=== PATIENT | male | born 1960 | race Caucasian/White ===

== ENCOUNTER 2024-01-10 04:47 | Emergency (ER) | payer MEDICARE, SELFPAY ==
[2024-01-10] VITALS (13 sets, daily range): BP systolic 58–149; BP diastolic 25–109; PULSE 66–183; RESP 12–42; TEMP 34.7–36; O2SAT 94
--- NOTE | 2024-01-10 04:30 | RT.EKG_ITS ---
APPROVED REPORT Exam: Resting ECG Reason for Exam: STEMI Patient Location: E HR:137 bpm ECG Measurements Heart Rate 137 AXIS CA 92 P 266 QRSd 87 QRS 130 QT 301 T 70 QTc 456 Conclusion Sinus tachycardia with irregular rate...V-rate 100-179, variation>10% Inferoposterior infarct, acute...ST>.1 inf, <-.1 V1-3 or >.05 V7-9 Lateral infarct, acute...ST >.10mV, V5 V6 I aVL Physician: stemi (inferior, lateral, and potential posterior) and potential afib/flutter
--- NOTE | 2024-01-10 04:45 | DI.RAD_ITS ---
Exam(s) XR PORTABLE CHEST AP POST LINE EXAM: XR PORTABLE CHEST AP POST LINE CLINICAL HISTORY: post intubation. TECHNIQUE: 2D digital imaging was performed. COMPARISON: No exams were available for comparison FINDINGS: Single AP portable view. Distal tip of the endotracheal tube is above the lily at the clavicular level. NG tube in place bu t requires further advancement into the stomach.. Chest leads and cardiac pad in place. Heart size is upper normal. The mediastinum is not widened. Lungs are clear. No infiltrates nor obvious pleural effusions. IMPRESSION: No acute pulmonary findings on this single AP portable view of the chest. Intubated. The NG tube needs to be advanced further into the stomach. DATA REPOSITORY: RADIATION DOSE DELIVERED:
[2024-01-10] MEDS: Rocuronium 50 MG/5 ML SYR 100 MG IVP (04:59)
[2024-01-10] MEDS: Etomidate 20 MG/10 ML VIAL IVP (04:59)
[2024-01-10] MEDS: Tenecteplase 50 MG KIT IVP (05:04)
[2024-01-10] MEDS: Phenylephrine 800 MCG/10 ML SYR 160 MCG IVP (05:10)
--- NOTE | 2024-01-10 05:15 | DI.CT_ITS ---
Exam(s) CT THORAX CTA EXAM: CT THORAX CTA CLINICAL HISTORY: stemi. TECHNIQUE: Imaging Protocol: CT angiography of the chest was performed using pulmonary embolus sharda col. Multi planar reconstructions were performed. CONTRAST MATERIAL: Intravenous: Omnipaque 350 Contrast volume: 100 cc COMPARISON: No exams were available for comparison FINDINGS: CHEST: Patient is intubated. Distal tip of the endotracheal tube is above the lily. There is also an NG tube in place. Distal tip is in the proximal stomach and should be further advanced. PULMONARY ARTERIES: There are no central intraluminal filling defects to suggest acute central pulmon jae emboli.Suboptimal opacification post segmental pulmonary arteries but no obvious pulmonary emboli . LUNGS: There are no infiltrates nor evidence of pulmonary infarction.. There are no pleural effusions . MEDIASTINUM: No mediastinal hematoma. No hilar nor mediastinal adenopathy. Visualized thyroid unrem arkable. CARDIAC: Heart size normal but there is a significant pericardial effusion which exhibits thickness o f 11 mm and which exhibits density units consistent with blood/hemopericardium.Thoracic aorta appears unremarkable with normal size and no evidence of dissection. However, there is significant contrast reflux into the liver; into the intrahepatic IVC and systemic veins of the dependent aspect of the r ight hepatic lobe and dependent right hepatic lobe parenchyma is also opacified. Interventricular se ptum is bowed towards the left-side. PARTIALLY VISUALIZED UPPERMOST ABDOMEN: Gallbladder wall edema noted without radiopaque gallstones no r gallbladder wall distension. OSSEOUS: No fractures. No significant osseous lesions.. IMPRESSION: 1. There is a moderate size pericardial effusion. Density of the fluid is consistent with hemoperica rdium..There is no evidence of aortic dissection nor significant dilatation of the thoracic aorta. 2. No obvious acute pulmonary emboli but there is paradoxical bowing of the interventricular septum o f the heart and a significant amount of the injected intravenous contrast is located in the intrahepa tic IVC and right and middle intrahepatic systemic veins as well as opacifying the dependent right he patic lobe parenchyma. This finding is consistent with significant cardiac dysfunction. 3. There is gallbladder wall edema noted. No obvious gallbladder calculi nor gallbladder distension. Suspect that this may be related to congestion from cardiac dysfunction but cannot completely rule out simultaneous cholecystitis. 4. No pulmonary infiltrates nor pleural effusions. No evidence of pulmonary infarction. First read by [facility]. RADIATION DOSE DELIVERED: 774.83mGy.cm Total DLP DATA REPOSITORY: All CT scans at this facility are submitted to the National Radiology Data Registry (NRDR) Dose Index Registry (DIR) with the [employer] ([employer]). RADIATION OPTIMIZATION: All CT scans at this facility use at least one of these dose optimization te chniques: automated exposure control; mA and/or kV adjustment per patient size (includes targeted exa ms where dose is matched to clinical indication); or iterative reconstruction.
--- NOTE | 2024-01-10 05:15 | DI.CT_ITS ---
Exam(s) CT HEAD WO EXAM: CT HEAD WO CLINICAL HISTORY: altered. TECHNIQUE: Imaging Protocol: Axial computed tomography images with coronal and sagittal reformatted images were created and reviewed COMPARISON: No exams were available for comparison FINDINGS: There is air in the forehead scalp tissues which appears to be within a vessel. There is also gas wi thin the cavernous sinuses bilaterally.. There is no radiopaque foreign body. There are also gas bu bbles within the left orbit retro conal compartment within vessels. There are no skull fractures. Th ere is no fluid in the visualized paranasal sinuses. There is no evidence of intracranial hemorrhage, mass effect, or shift of midline structures. There are no extra-axial fluid collections. The ventricles are not enlarged or shifted and there is no blo od within the ventricular system nor within the basal cisterns. IMPRESSION: There is multifocal intra vascular gas. This may be related to procedures such as iatrogenic injecti on or self injection. No evidence of intracranial hemorrhage nor obvious infarct. RADIATION DOSE DELIVERED: 719.29mGy.cm Total DLP DATA REPOSITORY: All CT scans at this facility are submitted to the National Radiology Data Registry (NRDR) Dose Index Registry (DIR) with the [employer] ([employer]). RADIATION OPTIMIZATION: All CT scans at this facility use at least one of these dose optimization te chniques: automated exposure control; mA and/or kV adjustment per patient size (includes targeted exa ms where dose is matched to clinical indication); or iterative reconstruction.
[2024-01-10 05:19] LABS: Lactate 11.7 mmol/L (0.6-1.4)
[2024-01-10 05:20] LABS: Abs Immature Grans 0.35 10^3/uL (0.0-0.06); Absolute Eosinophil Count 0.07 10^3/uL (0.0-0.7); Absolute Lymphocyte Count 1.67 10^3/uL (1.2-3.4); Absolute Neutrophil Count 13.77 10^3/uL (1.2-6.7); Basophils % 0.5; Eosinophils % 0.4; HCT 44.7 % (40.0-50.0); HGB 14.3 g/dL (13.5-17.5); Lymphocytes % 9.7; MCH 29.4 pg (27.0-33.0); MCV 92 fL (80-95); MPV 11.8 fL (8.0-11.0); Monocytes % 7.2; Neutrophils % 80.2; Platelet Count 269 10^3/uL (130-400); RBC 4.86 10^6/uL (4.36-5.78); RDW 12.5 % (11.8-14.1); RDW-SD 42.3 fL; WBC 17.17 10^3/uL (4.4-10.8)
[2024-01-10 05:22] LABS: Absolute Basophil Count 0.09 10^3/uL (0.0-0.2); Absolute Monocyte Count 1.24 10^3/uL (0.1-0.8)
[2024-01-10 05:31] LABS: INR 1.2 (0.9-1.1); PTT Activated 27.6 sec (23.6-32.8); Prothrombin Time 12.1 sec (9.1-11.1)
[2024-01-10] MEDS: Aspirin 300 MG SUPP PR (05:45)
[2024-01-10 05:47] LABS: ALT 55 U/L (16-63); AST 166 U/L (15-37); Albumin 2.8 g/dL (3.4-5.0); Alkaline Phosphatase 85 U/L (46-116); Anion Gap 22.1 mmol/L (3-11); BUN 12 mg/dL (7-18); CO2 13.9 mmol/L (21.0-32.0); CREATININE 2.4 mg/dL (0.70-1.30); Calcium 8.4 mg/dL (8.5-10.1); Chloride 96 mmol/L (98-107); Estimated GFR 29.21 (mL/min/1.73m2); Glucose 428 mg/dL (74-106); NT-proBNP 8335 pg/mL (<300); Potassium 3.6 mmol/L (3.5-5.1); Sodium 132 mmol/L (136-145); TSH (W/Ref FT4) 5.57 uIU/mL (0.36-3.74); Total Protein 6.2 g/dL (6.4-8.2)
[2024-01-10] MEDS: Omnipaque 350 MG/ML 100 ML BTL IJ (05:49)
[2024-01-10 05:50] LABS: Troponin I 19736 ng/L (< or =60)
[2024-01-10] MEDS: Normal Saline - Diluent 50 ML VIAL IJ (05:50)
--- NOTE | 2024-01-10 05:56 | DI.VRAD_ITS ---
PROCEDURE INFORMATION: Exam: XR Chest Exam date and time: 01/10/2024 5:12 AM Age: 63 years old Clinical indication: Device placement; Other: Intubation, og TECHNIQUE: Imaging protocol: Radiologic exam of the chest. Views: 1 view. COMPARISON: No relevant prior studies available. FINDINGS: Tubes, catheters and devices: NG tube tip is approximately at the gastric cardia, barely distal to the GE junction. ET tube tip is approximately 6.4 cm superior to the lily. Lungs: Unremarkable. No consolidation. Pleural spaces: Unremarkable. No pleural effusion. No pneumothorax. Heart/Mediastinum: Unremarkable. No cardiomegaly. Bones/joints: Unremarkable. IMPRESSION: NG tube tip is approximately at the gastric cardia, barely distal to the GE junction. Dictated and Authenticated by: Ilan Stein MD. Ordering:MEERA Quinn MD
--- NOTE | 2024-01-10 06:00 | DI.VRAD_ITS ---
PROCEDURE INFORMATION: Exam: CT Head Without Contrast Exam date and time: 01/10/2024 5:32 AM Age: 63 years old Clinical indication: Other: Stemi TECHNIQUE: Imaging protocol: Computed tomography of the head without contrast. Radiation optimization: All CT scans at this facility use at least one of these dose optimization techniques: automated exposure control; mA and/or kV adjustment per patient size (includes targeted exams where dose is matched to clinical indication); or iterative reconstruction. COMPARISON: No relevant prior studies available. FINDINGS: Brain: No brain edema. No intracranial hemorrhage. Cerebral ventricles: No ventriculomegaly. Paranasal sinuses: Visualized sinuses are unremarkable. No fluid levels. Mastoid air cells: Unremarkable. Bones/joints: Unremarkable. No acute fracture. Soft tissues: Unremarkable. Vasculature: Incidental multifocal intravenous gas. IMPRESSION: No acute brain findings. Dictated and Authenticated by: Ilan Stein MD. Ordering:MEERA Quinn MD
[2024-01-10 06:06] LABS: FREE T4 1.04 ng/dL (0.76-1.46)
--- NOTE | 2024-01-10 06:12 | DI.VRAD_ITS ---
PROCEDURE INFORMATION: Exam: CTA Chest With Contrast Exam date and time: 01/10/2024 5:34 AM Age: 63 years old Clinical indication: Other: Stemi TECHNIQUE: Imaging protocol: Computed tomographic angiography of the chest with contrast. Exam focused on the arteries. 3D rendering (Not supervised by radiologist): MIP and/or 3D reconstructed images were created by the technologist. Radiation optimization: All CT scans at this facility use at least one of these dose optimization techniques: automated exposure control; mA and/or kV adjustment per patient size (includes targeted exams where dose is matched to clinical indication); or iterative reconstruction. Contrast material: OMNIPAQUE 350; Contrast volume: 100 ml; Contrast route: INTRAVENOUS (IV); COMPARISON: CR XR PORTABLE CHEST AP 01/10/2024 5:12 AM FINDINGS: Tubes, catheters and devices: ET tube in place. NG tube tip is in the lumen of the proximal to mid stomach. Pulmonary arteries: Normal. No pulmonary emboli. Aorta: No acute aortic syndrome or aneurysm. Lungs: No CT findings of cardiogenic or noncardiogenic pulmonary edema. Lungs are clear. Pleural spaces: No pneumothorax or pleural effusion. Heart: There is moderate volume homogeneously hyperdense pericardial fluid compatible with hemopericardium. Heart size is normal but there is paradoxical bowing of the interventricular septum of the heart without right ventricular dilatation and the much of the right upper extremity intravenous contrast bolus passes right through the right atrium into the IVC (where much of it is pole dependently), the middle and right hepatic veins, and the dependent right lobe hepatic parenchyma. These findings correlate with the clinically determined approximately 20% ejection fraction/cardiac dysfunction due to massive acute FL. Esophagus: Unremarkable. Lymph nodes: Unremarkable. No enlarged lymph nodes. Gallbladder and bile ducts: Gallbladder is relatively contracted. Stranding/fluid adjacent to the gallbladder is probably related to hepatic congestion due to cardiac dysfunction rather than cholecystitis. Bones/joints: Unremarkable. No acute fracture. Soft tissues: Unremarkable. IMPRESSION: 1. There is moderate volume homogeneously hyperdense pericardial fluid compatible with hemopericardium. 2. Heart size is normal but there is paradoxical bowing of the interventricular septum of the heart without right ventricular dilatation and the much of the right upper extremity intravenous contrast bolus passes right through the right atrium into the IVC (where much of it is pole dependently), the middle and right hepatic veins, and the dependent right lobe hepatic parenchyma. These findings correlate with the clinically determined approximately 20% ejection fraction/cardiac dysfunction due to massive acute FL. 3. Gallbladder is relatively contracted. Stranding/fluid adjacent to the gallbladder is probably related to hepatic congestion due to cardiac dysfunction rather than cholecystitis. Findings discussed with ROSALVA DAIGLE MD at time of interpretation. Dictated and Authenticated by: Ilan Stein MD. Ordering:MEERA Quinn MD
--- NOTE | 2024-01-10 07:40 | ED.GENADUL_ITS ---
Discharge Plan Disposition Patient Disposition: Transfer-Acute Inpatient Care Specific Acute Inpt Facility: [facility] Condition: Critical Discharge Details Chief Complaint: Chest Pain Clinical Impression: ST elevation MD (STEMI), SVT (supraventricular tachycardia), Shock Primary Care Provider: None,None ED Provider: Kai Daigle General Date/Time Provider Initiated Documentation: 01/10/24 05:11 . HPI Narrative: 63-year-old male with no significant past medical history who is a retired assistant associate full professor, with no history of tobacco use or alcohol use, who takes no medications presents today for evaluation of STEMI. History comes from EMS and family. Family states that for the last 24 hours the patient was complaining of right foot pain, as well as some nausea. No other complaints whatsoever. Patient did exercise a few days ago which was within normal limits. No other atypical behaviors. No complaints of chest pain. This evening at around 3 AM the patient's noted that his extremities were cold, he was sweaty and clammy, and so she called EMS for further assessment. Upon EMS arrival the patient was noted to have a STEMI on EKG, rapid heart rate in the 170s to 180s, and to be quite confused and altered. He was brought to the ER for further assessment. Patient lived 45 minutes to an hour away from here and so transport time was prolonged secondary to this. EMS did give [address] of [address]rolol on the way. No other medications. Patient upon arrival is relatively nonresponsive to questioning. No further history can be provided. General Stated Complaint: Chest Pain AMY: 1 Review of Systems Unobtainable due to endotracheal tube Exam Narrative Exam Narrative: 1.Const: Well-nourished, Well-developed, appearing stated age 2.Eyes: PERRL, no conjunctival injection, and symmetrical lids. 3.ENT: Atraumatic external nose and ears. Moist MM. Neck: Symmetric, trachea midline, No thyromegaly. 4.CVS: +S1/S2, No murmurs that I can auscultate or gallops. Peripheral pulses are not present, but bilateral carotid pulses are present. Questionable thready femoral pulse. Notably cool extremities, pulses are not present. Capillary refill is notably diminished 5.RESP: Unlabored respiratory effort. Clear to auscultation bilaterally. No wheezes rales or rhonchi 6.GI: Soft, no hepatomegaly. No guarding or rebound 7.MSK: Normocephalic/Atraumatic, Extremities w/o deformity. Notable cyanosis in all extremities. Patient demonstrates spontaneous movement in all extremities. 8.Skin: Cool to the touch in all extremities. Central cord appears warm. 9.Neuro: Patient is altered, moving all extremities spontaneously. Patient is speaking occasionally with clear words, but mentation appears to be diminished 10.Psych: (AAO) x1. Altered Course Vital Signs Vital signs: Vital Signs Respiratory Rate 42 H 01/10/24 04:49 Temperature 36.0 C L 01/10/24 05:43 Pulse 98 H 01/10/24 05:43 Pulse 127 H 01/10/24 05:21 Respiratory Rate 15 01/10/24 05:21 Respiratory Effort Normal, Non-Labored 01/10/24 06:08 Blood Pressure 104/85 01/10/24 05:43 Blood Pressure Mean 88 01/10/24 05:43 Pulse Oximetry 94 01/10/24 05:14 Respiratory End-tidal CO2 30 01/10/24 05:14 Oxygen Delivery Method Room Air 01/10/24 04:46 Oxygen Flow Rate 0 01/10/24 04:46 Fraction of Inspired Oxygen (FIO2) 100 01/10/24 05:14 Lab/Test Results Lab/Test Results: Laboratory Tests Range/Units 01/10/24 04:52 WBC (4.4-10.8) 10^3/uL 17.17 H RBC (4.36-5.78) 10^6/uL 4.86 Hgb (13.5-17.5) g/dL 14.3 Hct (40.0-50.0) % 44.7 MCV (80-95) fL 92 MCH (27.0-33.0) pg 29.4 MCHC (32.0-36.0) % 32.0 RDW (11.8-14.1) % 12.5 Plt Count (130-400) 10^3/uL 269 MPV (8.0-11.0) fL 11.8 H Immature Gran % 2.0 Neutrophils % 80.2 Lymphocytes % 9.7 Monocytes % 7.2 Eosinophils % 0.4 Basophils % 0.5 Nucleated RBC % (0.0-0.3) % 0.0 Absolute Neutrophils (1.2-6.7) 10^3/uL 13.77 H Absolute Lymphocytes (1.2-3.4) 10^3/uL 1.67 Absolute Monocytes (0.1-0.8) 10^3/uL 1.24 H Absolute Eosinophils (0.0-0.7) 10^3/uL 0.07 Absolute Basophils (0.0-0.2) 10^3/uL 0.09 PT (9.1-11.1) sec 12.1 H INR (0.9-1.1) 1.2 H APTT (23.6-32.8) sec 27.6 VBG Lactate (0.6-1.4) mmol/L 11.7 H* Sodium (136-145) mmol/L 132 L Potassium (3.5-5.1) mmol/L 3.6 Chloride (98-107) mmol/L 96 L Carbon Dioxide (21.0-32.0) mmol/L 13.9 L Anion Gap (3-11) mmol/L 22.1 H BUN (7-18) mg/dL 12 Creatinine (0.70-1.30) mg/dL 2.4 H Est GFR (CKD-EPI 2020) (mL/min/1.73m2) 29.21 Glucose (74-106) mg/dL 428 H Calcium (8.5-10.1) mg/dL 8.4 L Total Bilirubin (0.2-1.0) mg/dL 1.0 AST (15-37) U/L 166 H ALT (16-63) U/L 55 Alkaline Phosphatase (46-116) U/L 85 Troponin I (< or =60) ng/L 12274 H* NT-Pro-B Natriuret Pep (<300) pg/mL 8335 H Total Protein (6.4-8.2) g/dL 6.2 L Albumin (3.4-5.0) g/dL 2.8 L TSH (0.36-3.74) uIU/mL 5.57 H Free T4 (0.76-1.46) ng/dL 1.04 Procedures Intubation Time out performed: Yes sedative: Etomidate Mg Given: 20 paralytic: Rocuronium Mg Given: 100 Laryngoscope: Edward Assist Device Used: fiberoptic device ET Tube Size: 7.5 ET Tube Uncuffed: No Tube Secured Depth (cm): 25 Tube Secured Location: teeth Tube Placement Confirmation: visualized tube passing through cords, equal breath sounds bilaterally, no breath sounds over epigastrum and confirmation by capnometry Patient Tolerated Procedure: well and no complications Intubation Complications: none Other Description: Time out was taken to identify the correct patient, procedure, and site. Risks and benefits were discussed and the decision was made to emergently. The cardioversion pads are placed in the front to back orientation overlying the he art. After appropriate analgesia and anesthesia are obtained, the defibrillator is synchronized to the patient's heart rhythm. 200 J of energy are delivered but no change was noted to the rhythm. The patient tolerated the procedure. Medical Decision Making 63-year-old male with no significant past medical history who is a retired assistant associate full professor, with no history of tobacco use or alcohol use, who takes no medications presents today for evaluation of STEMI. History comes from EMS and family. Family states that for the last 24 hours the patient was complaining of right foot pain, as well as some nausea. No other complaints whatsoever. Patient did exercise a few days ago which was within normal limits. No other atypical behaviors. No complaints of chest pain. This evening at around 3 AM the patient's noted that his extremities were cold, he was sweaty and clammy, and so she called EMS for further assessment. Upon EMS arrival the patient was noted to have a STEMI on EKG, rapid heart rate in the 170s to 180s, and to be quite confused and altered. He was brought to the ER for further assessment. Patient lived 45 minutes to an hour away from here and so transport time was prolonged secondary to this. EMS did give [address] of [address]oprolol on the way. No other medications. Patient upon arrival is relatively nonresponsive to questioning. No further history can be provided. Upon EMS arrival EKG was reviewed and demonstrated evidence of notable STEMI in the inferior leads, lateral leads, with concern for potential posterior component. Patient was notably altered, not protecting his airway well, we are not able to keep him from pulling out his IVs. Decision was made to intubate the patient for airway securement. IV access was obtained, airway was quickly secured without complication. He was sedated using etomidate and rocuronium. Due to the evidence of the notable STEMI decision was made to administer TNK. Upon arrival initial heart rate was in the 170s, and appeared to be SVT versus A-fib/flutter. Blood pressure was noted to be profoundly hypotensive in the 50s systolic. Decision was made to attempt to cardiovert. 200 J/synchronized cardioversion were attempted, no success. Heart rate remained notably elevated, blood pressure did not change. 2 L of normal saline were rapidly transfused. Because of the low blood pressure in the high heart rate, only wanted to avoid additional beta-blockers or calcium channel blockers, to bring up the blood pressure we used 160 mcg of phenylephrine and the blood pressure responded well. We did a 300 mg amiodarone bolus, followed by 1 mg/min amiodarone drip. This eventually transitioned his heart rate from the 170s down to the 70s to 80s. Bedside POCUS was performed, notable irregularity was noted, notable wall motion abnormality, significant diminishment of function for the left ventricle, however the interventricular septum appeared to be bowing into the left ventricle, trace pericardial effusion was noted. Right ventricle did not appear overly dilated to suggest massive PE. Trace pericardial effusion was mild on initial POCUS, and did not seem to suggest tamponade, however right ventricle and interventricular septum findings were notably atypical. Decision was made to perform CT of the head and CTA of the chest to evaluate for dissection into the myocardium versus aortic dissection. [facility] was initially coming to [facility] for transport of another patient, however due to this patient's emergent status, that was diverted to transfer this patient back to [facility]. Upon their arrival we immediately transition the patient from CT imaging to start transport for expedited transfer. While the patient was on the stretcher, his vital signs notably stabilized. [facility] agreed to start the heparin bolus and infusion, and continue the amiodarone drip. Perirectal aspirin was administered here. Patient was transferred for further management. After transfer had occurred, we were contacted by radiology, upon their review of CT imaging there is no evidence of acute bleed. CTA of the chest however shows atypical pericardial fluid that seems to be located primarily around the right ventricle. Concern for hematoma, and thus concern for rupture or ventricular wall bleed. These findings were discussed with [facility] cardiology, Dr. Gosia Ohara. Additionally I discussed the case with the patient's and informed her of the findings. She will be traveling to [facility]. Answered all questions that were asked. I have extensively reviewed the treatment plan with the patient. I have addressed all patient concerns at this time. I have also discussed the plan with the admitting physician and they agree with the current assessment and plan and have agreed to assume responsibility for the patient. All parties demonstrate verbal understanding and agreement with our assessment and plan at this time. The documentation in this chart was dictated using [employer] dictation software. Please excuse any dictation errors. FINDINGS: Tubes, catheters and devices: NG tube tip is approximately at the gastric cardia, barely distal to the GE junction. ET tube tip is approximately 6.4 cm superior to the lily. Lungs: Unremarkable. No consolidation. Pleural spaces: Unremarkable. No pleural effusion. No pneumothorax. Heart/Mediastinum: Unremarkable. No cardiomegaly. Bones/joints: Unremarkable. IMPRESSION: NG tube tip is approximately at the gastric cardia, barely distal to the GE junction. Thank you for allowing us to participate in the care of your patient. Dictated and Authenticated by: Ilan Stein MD 01/10/2024 5:55 AM Eastern Time ([place] & [place]) FINDINGS: Brain: No brain edema. No intracranial hemorrhage. Cerebral ventricles: No ventriculomegaly. Paranasal sinuses: Visualized sinuses are unremarkable. No fluid levels. Mastoid air cells: Unremarkable. Bones/joints: Unremarkable. No acute fracture. Soft tissues: Unremarkable. Vasculature: Incidental multifocal intravenous gas. IMPRESSION: No acute brain findings. Thank you for allowing us to participate in the care of your patient. Dictated and Authenticated by: Ilan Stein MD 01/10/2024 6:00 AM Eastern Time ([place] & [place]) FINDINGS: Tubes, catheters and devices: ET tube in place. NG tube tip is in the lumen of the proximal to mid stomach. Pulmonary arteries: Normal. No pulmonary emboli. Aorta: No acute aortic syndrome or aneurysm. Lungs: No CT findings of cardiogenic or noncardiogenic pulmonary edema. Lungs are clear. Pleural spaces: No pneumothorax or pleural effusion. Heart: There is moderate volume homogeneously hyperdense pericardial fluid compatible with hemopericardium. Heart size is normal but there is paradoxical bowing of the interventricular septum of the heart without right ventricular dilatation and the much of the right upper extremity intravenous contrast bolus passes right through the right atrium into the IVC (where much of it is pole dependently), the middle and right hepatic veins, and the dependent right lobe hepatic parenchyma. These findings correlate with the clinically determined approximately 20% ejecti on fraction/cardiac dysfunction due to massive acute MD. Esophagus: Unremarkable. Lymph nodes: Unremarkable. No enlarged lymph nodes. Gallbladder and bile ducts: Gallbladder is relatively contracted. Stranding/fluid adjacent to the gallbladder is probably related to hepatic congestion due to cardiac dysfunction rather than cholecystitis. Bones/joints: Unremarkable. No acute fracture. Soft tissues: Unremarkable. IMPRESSION: 1. There is moderate volume homogeneously hyperdense pericardial fluid compatible with hemopericardium. 2. Heart size is normal but there is paradoxical bowing of the interventricular septum of the heart without right ventricular dilatation and the much of the right upper extremity intravenous contrast bolus passes right through the right atrium into the IVC (where much of it is pole dependently), the middle and right hepatic veins, and the dependent right lobe hepatic parenchyma. These findings correlate with the clinically determined approximately 20% ejection frac tion/cardiac dysfunction due to massive acute MD. 3. Gallbladder is relatively contracted. Stranding/fluid adjacent to the gallbladder is probably related to hepatic congestion due to cardiac dysfunction rather than cholecystitis. Findings discussed with KAI DAIGLE MD at time of interpretation. Thank you for allowing us to participate in the care of your patient. Dictated and Authenticated by: Ilan Stein MD 01/10/2024 6:11 AM Eastern Time ([place] Quality:SDOH Health Related Social Needs: No Data to Display Critical Care Time Critical Care Time Total Critical Care Time: 88 Attestation: Upon my evaluation, this patient had a high probability of imminent or life- threatening deterioration, which required my direct attention, intervention, and personal management. I have personally provided 45 minutes of critical care time exclusive of time spent on separately billable procedures. Time includes review of laboratory data, radiology results, discussion with consultants, and mon itoring for potential decompensation. Interventions were performed as documented. [facility] All Active Problems (Updated 01/10/24 @ 08:23 by Kai Daigle DO) Shock (Acute) SVT (supraventricular tachycardia) (Chronic) ST elevation MD (STEMI) (Acute) Social History Smoking/Tobacco Use Status: Unknown Smoking risk assessment performed?: Yes Substance use type: unknown Housing: house
== END 2024-01-10 06:04 | disposition short-term general hospital (02) ==
PROVIDERS: Emergency Provider Student in an Organized Health Care Education/Training Program
DX: I21.3 ST elevation (STEMI) myocardial infarction of unspecified site (principal); I47.10 Supraventricular tachycardia, unspecified
CPT/HCPCS: 31500; 71045; 71275; 80053; 93005; 96374; 96375; 99291; 99292; 70450; 83605; 83880; 84439; 84443; 84484; 85025; 85610; 85730; 93010; J0282; J2371; J3101; J3490